=== PATIENT | female | born 2000 | race African-American/Black ===

== ENCOUNTER 2018-09-27 02:30 | Inpatient (IN) | payer SELFPAY ==
[~2018-09-27] VITALS: Ht 165.1 cm; Wt 69.9 kg
[2018-09-27 03:50] VITALS: BP 105/65
[2018-09-27] MEDS ORDERED: ONDANSETRON PF 4 MG/2 ML VIAL. IV PRN (04:30)
[2018-09-27] MEDS ORDERED: fentaNYL PF VIAL 100 MCG/2 ML VIAL IV PRN (04:30)
[2018-09-27] MEDS ORDERED: diphenhydrAMINE 50 MG/ML VIAL IVP PRN (04:30)
[2018-09-27] MEDS: IV NORMAL SALINE 1000ML BAG 1,000 ML IV SCH ×2 (04:42→14:28)
[2018-09-27 07:00] VITALS: BP 117/76
--- NOTE | 2018-09-27 09:05 | PDOC2 ---
CONSULT Date of Consult Date of Consult DATE: 09/27/18 TIME: 09:00 Reason for Consult Reason for Consult: abdominal pain Referring Physician Referring Physician: ER Identification/Chief Complaint Chief Complaint abdominal pain Source Source: Chart review, Patient History of Present Illness Reason for Visit: 3 days of right sided abdominal pain, associated nausea and emesis. No constipation or diarrhea. Reports finished menstruation Sunday, however yesterday developed heavy vaginal bleeding that has continued. This is not a usual occurrence for her Past Medical History Past Medical History no pertinent hx Past Surgical History Past Surgical History: No pertinent history Family History Family History: Other (noncontributory to current illness ) Social History No ALCOHOL: none Drugs: None Lives: with Family Current Medications Current Medications Current Medications Sodium Chloride 1,000 ml @ 100 mls/hr Q10H IV Last administered on 09/27/18at 04:42; Start 09/27/18 at 05:00 Fentanyl Citrate (Fentanyl 2ml Vial) 50 mcg PRN Q3HRS PRN IV SEVERE PAIN Last administered on 09/27/18at 06:30; Start 09/27/18 at 04:30 Ondansetron HCl (Zofran) 4 mg PRN Q4HRS PRN IV NAUSEA/VOMITING 1ST CHOICE Last administered on 09/27/18at 04:41; Start 09/27/18 at 04:30 Diphenhydramine HCl (Benadryl) 25 mg PRN Q4HRS PRN IVP ITCHING; Start 09/27/18 at 04:30 Allergies Allergies: Coded Allergies: No Known Drug Allergies (Unverified , 09/27/18) ROS General: No: Chills, Other (fevers) PSYCHOLOGICAL ROS: No: Anxiety, Depression Eyes: No Blurry vision, No Double vision HEENT: No: Heacaches, Sore Throat Hematological and Lymphatic: No: Bleeding Problems, Blood Clots Respiratory: No: Cough, SOB with excertion Cardiovascular: No Chest Pain, No Palpitations Gastrointestinal: Yes Other (see hpi) Genitourinary: No Dysuria, No Retention Musculoskeletal: No Joint Pain, No Muscle Pain Neurological: No Confusion, No Impaired Coord/balance Skin: No Pruritus, No Rash Physical Exam General: Alert, Oriented X3, Cooperative, No acute distress HEENT: PERRLA, Mucous membr. moist/pink Lungs: Clear to auscultation, Normal air movement Heart: Regular rate, Normal S1, Normal S2, No murmurs Abdomen: Soft, Other (ND, RUQ TTP, very mild epigastric and RLQ pain) Skin: No rashes, No breakdown Neuro: Normal gait, Normal speech MUSCULOSKELETAL: No deformity, No swelling Vitals VITALS Vital Signs Date Time Temp Pulse Resp B/P (MAP) Pulse Ox O2 Delivery O2 Flow Rate FiO2 09/27/18 07:23 93 Room Air 09/27/18 03:50 98.5 86 18 105/65 (78) 98.5 Images Images 1. There is free fluid within the abdomen and pelvis which is more than typically seen and suggestive of a pathologic process. There is also some edema seen to the mesentery within the pelvis. 2. The appendix is partially visualized and appears mildly dilated. This courses through a region of fluid therefore difficult to tell if there is adjacent inflammatory changes however given the dilation correlation is needed as to whether the patient is having symptoms of appendicitis given that if there is high clinical concern causes such as an early appendicitis is within the differential. Given that the dilation is only borderline however the diagnosis is not certain. If unclear clinically and further information is desired a follow-up CT could be obtained at a later time to assess for further increase in size of the appendix. 3. Within the pelvis there is a linear region of high density seen along the peritoneum. Difficult to tell if this is secondary to peritoneal enhancement from inflammation to the peritoneum or if this is from a small vessel coursing through the region. 4. Periportal edema within the liver. This is a nonspecific finding and can be secondary to the patient's hydration status however inflammation of the liver or biliary tree can also have this appearance. 5. There is some fullness of the left adnexa. Would correlate with symptoms in the region to ensure there is not a pathologic process and if further information is desired pelvic ultrasound could further evaluate Assessment/Plan Assessment/Plan CT reviewed abdominal pain, mainly ruq, abnormal vaginal bleeding will order pelvic sono, gb sono, and SURVEY RESEARCHER consult MIGUELINA MOSS APRN Sep 27, 2018 09:05
[2018-09-27] MEDS: MORPHINE SULFATE 2 MG/ML VIAL. IV PRN ×5 (09:44→23:26)
[2018-09-27 11:00] VITALS: BP 99/52
--- NOTE | 2018-09-27 11:28 | NUR ---
SW following for discharge planning. Discussed with RN, pt is from home, possibly having surgery. Pt is self pay, SW to provide self pay resources.
--- NOTE | 2018-09-27 12:10 | HP ---
ADMIT DATE: 09/27/2018 HISTORY OF PRESENT ILLNESS: The patient is a 18-year-old -Citizen Of [place] female patient who came complaining of severe right flank pain that started about 3 days ago. She did have some nausea and vomiting, but denied any chills, rigors or fever. Denied any dysuria, frequency or hematuria. She was evaluated extensively in the Emergency Room and has had a CT scan of the abdomen, which showed that there is free fluid within the abdomen and pelvis, which she is more than typically seen and suggestive of pathologic process. There is also some edema seen to the mesentery within the pelvis. The appendix is partially visualized and appears mildly dilated ____ the region of the fluid, therefore difficult to tell if there are adjacent inflammatory changes. However, given the dilation, correlation is needed as to whether she is having symptoms of appendicitis given that there is a high clinical concern such as an early appendicitis within differential. Given that dilation is only borderline, however, diagnosis is not certain. If unclear clinically, further information desired. A followup CT could be obtained at a later time to assess for further increase in size of the appendix. Within the pelvis, there is a linear region of high density seen along the peritoneum, difficult to tell if this is secondary to peritoneal enhancement from inflammation or there is a small vessel coursing to the region. She has also periportal edema within the liver. There is nonspecific finding and can be secondary to the patient's hydration status; however, inflammation of the liver ____ can also give this appearance. There is some fullness of the left adnexa and would correlate with symptoms in the region to ensure that there is not a pathologic process. Further information desired, pelvic ultrasound could further evaluate. Given all this finding, the patient was transferred to [facility] to consult the surgical team as well as the morning news anchor if felt necessary. PAST MEDICAL HISTORY: Unremarkable. PAST SURGICAL HISTORY: Unremarkable. ALLERGIES: No known drug allergies. MEDICATIONS: She is currently on no medication. Her last menstrual period started about 5 days ago, stopped and started heavier than usual. FAMILY HISTORY: She has 5 brothers, 1 older and 2 sisters younger. She does not know her biological mother. Her father lives in [place]. SOCIAL HISTORY: She is single, has no children. She does not smoke, drink alcohol, or recreational drugs. 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 REVIEW OF SYSTEMS: As per history of present illness. PHYSICAL EXAMINATION GENERAL: When I saw her this morning, she looked well and was clearly in no apparent respiratory distress. No pallor, jaundice, cyanosis or thyromegaly. No jugular venous distension. No lower limb edema. VITAL SIGNS: Her heart rate was 81, blood pressure 117/76, temperature was 98.4, respiratory rate was 18 and oxygen saturation was 98% on room air. HEAD, EYES, EARS, NOSE AND THROAT: She is well nourished, well developed, in no acute distress. She is normocephalic, atraumatic. NECK: Supple. CARDIAC: Normal first and second heart sounds. No gallop or murmur. CHEST: Clear to auscultation. No crepitation or rhonchi. ABDOMEN: Soft, nontender. No guarding or rigidity. No organomegaly. All hernial orifices intact. Bowel sounds normal. NEUROLOGIC: She is awake, alert, oriented x 3, with normal motor and sensory function. VITAL SIGNS: Her heart rate on arrival was 56, blood pressure was 118/73, temperature was 98, respiratory rate was 16 and oxygen saturation was 99% on room air. LABORATORY DATA: Her lab work on arrival to the Emergency Room showed her white cell count was 8200, hemoglobin 10, hematocrit 31, MCV 90 and platelet count of 446,000. Her urinalysis was essentially unremarkable and was negative for nitrite with large amount of blood, [id number] count rbc's and no wbc's, and no bacteria. Her toxic screen was negative. Her prothrombin time was 10.4, INR 1, aPTT was 26. Her serum sodium 141, potassium 3.4, chloride 106, bicarbonate 27, anion gap of 8, BUN 8, creatinine 0.8, estimated GFR was 110 mL per minute. Her glucose was 93, calcium was 8.7. Total bilirubin, AST, ALT, alkaline phosphatase were normal. Total protein was 7.7, albumin was 3.3. Amylase and lipase were normal. IMPRESSION AND PLAN: In summary, this is a 18-year-old female patient who came in complaining of a questionable appendicitis; however, there are other findings on the CT scan of the abdomen, and therefore, we will keep the patient n.p.o., start her on IV fluid, pain medication and antiemetic. We consulted the surgical team and if need be, we might have to consult the morning news anchor given the finding in the pelvic region. BRANDI BOWMAN MD DR: JERRELL/serg JOB#: [id number] / [id number]
[2018-09-27 15:00] VITALS: BP 95/59
--- NOTE | 2018-09-27 16:39 | PDOC ---
GENERAL General: 18yrs old W/F having Abdominal in RT upper quadrant Having her Period now and Bleeding..H/O Irregular Periods. VITAL SIGNS Vital Signs: Vital Signs Date Time Temp Pulse Resp B/P (MAP) Pulse Ox O2 Delivery O2 Flow Rate FiO2 09/27/18 14:28 93 Room Air 09/27/18 11:00 98.6 57 18 99/52 (68) 98.6 I & O I & O Intake and Output 09/27/18 07:00 Intake Total 0 ml Balance 0 ml Intake Oral 0 ml ALLERGIES Allergies: Allergies Coded Allergies Type Severity Reaction Last Updated Verified No Known Drug Allergies 09/27/18 No MEDS Medications: Current Medications Medications (Trade) Dose Ordered Sig/Dusty Start Time Stop Time Status Last Admin Dose Admin Diphenhydramine HCl (Benadryl) 25 mg PRN Q4HRS PRN 09/27/18 04:30 09/27/18 09:44 25 MG Fentanyl Citrate (Fentanyl 2ml Vial) 50 mcg PRN Q3HRS PRN 09/27/18 04:30 09/27/18 09:12 DC 09/27/18 06:30 50 MCG Morphine Sulfate (Morphine Sulfate) 2 mg PRN Q2HR PRN 09/27/18 09:15 09/27/18 12:17 2 MG Ondansetron HCl (Zofran) 4 mg PRN Q4HRS PRN 09/27/18 04:30 09/27/18 04:41 4 MG Sodium Chloride 1,000 ml @ 100 mls/hr Q10H 09/27/18 05:00 09/27/18 14:28 100 MLS/HR LAB Lab: Needs Stat CBC with Diff. Serum Electrolytes. On IV Fluids. IMAGING Imaging: Pending Pelvic Ultrasound. ASSESSMENT & PLAN A&P Wait for Lab work.and ultrasound report. Has Negative test. Pelvic Exam shows Normal size uterus. No Adnexal tenderness.Mild Bleeding due to period. Will see her in AM. GARRETT VEGA MD Sep 27, 2018 16:39
[2018-09-27 17:20] LABS: BASO % 1 % (0-3); EOS # 0.1 x10^3/uL (0.0-0.7); EOS % 1 % (0-3); HEMATOCRIT 28.9 % (36.0-47.0); HEMOGLOBIN 9.6 g/dL (12.0-15.5); LYMPH % 30 % (24-48); MEAN CORPUSCULAR HEMOGLOBIN 30 pg (25-35); MEAN CORPUSCULAR HGB CONC 33 g/dL (31-37); MEAN CORPUSCULAR VOLUME 90 fL (79-100); MONO # 0.5 x10^3/uL (0.0-1.1); MONO % 8 % (0-9); NEUT # 4.1 x10^3uL (1.8-7.7); NEUT % 61 % (31-73); PLATELET COUNT 371 x10^3/uL (140-400); RED BLOOD COUNT 3.22 x10^6/uL (3.50-5.40); RED CELL DISTRIBUTION WIDTH 12.7 % (11.5-14.5); WHITE BLOOD COUNT 6.8 x10^3/uL (4.0-11.0)
[2018-09-27 17:29] LABS: CALCIUM 8.9 mg/dL (8.5-10.1); CREATININE 0.8 mg/dL (0.6-1.0); GFR 110.7; POTASSIUM 3.7 mmol/L (3.5-5.1)
[2018-09-27 17:35] LABS: ALBUMIN 3.1 g/dL (3.4-5.0); ALBUMIN/GLOBULIN RATIO 0.8 (1.0-1.7); TOTAL BILIRUBIN 0.4 mg/dL (0.2-1.0); TOTAL PROTEIN 7.1 g/dL (6.4-8.2)
--- NOTE | 2018-09-27 19:00 | RAD ---
Ultrasound pelvis complete and transvaginal ultrasound pelvis HISTORY: Pain and irregular cycles Sonographic examination of the pelvis was performed by transabdominal and endovaginal technique. Multiple static images were obtained. Ultrasound pelvis complete transabdominal: The uterus is retroverted. The endometrium appears normal and measures 4 mm in thickness. There is a moderate amount of free fluid in the pelvis. The uterus measures 7.7 x 4.9 x 3.9 cm. Transvaginal some pelvis: The ovaries are large with bilateral masses. The right ovary measures 5.8 x 5.7 x 3.9 cm. Left ovary measures 5. By 3.9 x 3.2 cm. The largest masses on the right measures 3.5 x 2.3 x 2.4 cm. There is normal blood flow the ovaries bilaterally. IMPRESSION: 1. Bilateral ovarian masses. This could be secondary to endometriosis. 2. Free fluid in the pelvis. must be excluded in order to exclude possible ruptured ectopic. Also a 2 month follow-up ultrasound is recommended. Electronically signed by: Jesus Mann III, MD (09/27/2018 6:57 PM) [facility]
--- NOTE | 2018-09-27 19:01 | RAD ---
Complete Abdominal Ultrasound: Clinical History: Abdominal pain Technique: Sonographic examination of the abdomen was performed and multiple static images were obtained. Findings: The majority of the liver is visualized and appears homogeneous. The common bile duct appears normal measures 1.7 mm in diameter. The gallbladder appears normal. The pancreas is not well visualized due to overlying bowel gas but appears within normal limits. The right kidney appears normal and measures 12.4 cm in length. The left kidney appears normal and measures 12.5 cm in length. The spleen is not enlarged. Visualized portions of the abdominal aorta and IVC appear normal. Impression: Negative. No evidence of gallbladder disease. Electronically signed by: Jesus Mann III, MD (09/27/2018 6:58 PM) [facility]
[2018-09-27 19:25] VITALS: BP 101/45
[2018-09-27] MEDS ORDERED: CLINDAMYCIN INJ 300 MG in IV DEXTROSE 5% 50 ML IV SCH (22:00)
[2018-09-27] MEDS: CLINDAMYCIN 600MG PREMIX 50 ML IV SCH (23:26)
[2018-09-27 23:47] VITALS: BP 94/46
[2018-09-28] MEDS: MORPHINE SULFATE 2 MG/ML VIAL. IV PRN ×2 (01:43→05:07)
[2018-09-28] MEDS: IV NORMAL SALINE 1000ML BAG 1,000 ML IV SCH ×2 (02:58→11:00)
[2018-09-28 03:48] VITALS: BP 92/45
[2018-09-28] MEDS: CLINDAMYCIN 600MG PREMIX 50 ML IV SCH ×2 (05:08→14:00)
[2018-09-28 06:20] LABS: HEMATOCRIT 27.1 % (36.0-47.0); HEMOGLOBIN 8.9 g/dL (12.0-15.5); RED BLOOD COUNT 3.02 x10^6/uL (3.50-5.40); RED CELL DISTRIBUTION WIDTH 12.9 % (11.5-14.5); WHITE BLOOD COUNT 4.9 x10^3/uL (4.0-11.0)
[2018-09-28 06:48] LABS: ALBUMIN 2.6 g/dL (3.4-5.0); ALBUMIN/GLOBULIN RATIO 0.7 (1.0-1.7); CALCIUM 8.3 mg/dL (8.5-10.1); CREATININE 0.8 mg/dL (0.6-1.0); GFR 110.7; POTASSIUM 3.8 mmol/L (3.5-5.1); TOTAL BILIRUBIN 0.3 mg/dL (0.2-1.0); TOTAL PROTEIN 6.1 g/dL (6.4-8.2)
[2018-09-28 07:00] VITALS: BP 96/55
[2018-09-28] MEDS ORDERED: HYDROcodone/APAP 5/325MG 1 TAB TABLET PO PRN (10:30)
[2018-09-28 11:00] VITALS: BP 112/69
--- NOTE | 2018-09-28 12:19 | PDOC ---
GENERAL General: Patient still has upper abdominal pain. No pain in Pelvic area. Petient on her period. VITAL SIGNS Vital Signs: Vital Signs Date Time Temp Pulse Resp B/P (MAP) Pulse Ox O2 Delivery O2 Flow Rate FiO2 09/28/18 11:41 Room Air 09/28/18 07:00 98.4 22 96/55 (69) 92 98.4 09/28/18 05:37 17 ALLERGIES Allergies: Allergies Coded Allergies Type Severity Reaction Last Updated Verified No Known Drug Allergies 09/27/18 No MEDS Medications: Current Medications Medications (Trade) Dose Ordered Sig/Dusty Start Time Stop Time Status Last Admin Dose Admin Acetaminophen/ Hydrocodone Bitart (Lortab 5/325) 1 tab PRN Q4HRS PRN 09/28/18 10:30 09/28/18 10:41 1 TAB Clindamycin Phosphate 50 ml @ 100 mls/hr Q8HRS 09/27/18 22:00 09/28/18 05:08 100 MLS/HR Clindamycin Phosphate 300 mg/ Dextrose 52 ml @ 104 mls/hr Q8HRS 09/27/18 22:00 Cancel Diphenhydramine HCl (Benadryl) 25 mg PRN Q4HRS PRN 09/27/18 04:30 09/27/18 09:44 25 MG Fentanyl Citrate (Fentanyl 2ml Vial) 50 mcg PRN Q3HRS PRN 09/27/18 04:30 09/27/18 09:12 DC 09/27/18 06:30 50 MCG Morphine Sulfate (Morphine Sulfate) 2 mg PRN Q2HR PRN 09/27/18 09:15 09/28/18 05:07 2 MG Ondansetron HCl (Zofran) 4 mg PRN Q4HRS PRN 09/27/18 04:30 09/27/18 04:41 4 MG Sodium Chloride 1,000 ml @ 100 mls/hr Q10H 09/27/18 05:00 09/28/18 02:58 100 MLS/HR LAB Lab: Laboratory Tests Test 09/27/18 16:43 09/28/18 05:50 White Blood Count 6.8 x10^3/uL (4.0-11.0) 4.9 x10^3/uL (4.0-11.0) Red Blood Count 3.22 x10^6/uL (3.50-5.40) 3.02 x10^6/uL (3.50-5.40) Hemoglobin 9.6 g/dL (12.0-15.5) 8.9 g/dL (12.0-15.5) Hematocrit 28.9 % (36.0-47.0) 27.1 % (36.0-47.0) Mean Corpuscular Volume 90 fL (79-100) 90 fL (79-100) Mean Corpuscular Hemoglobin 30 pg (25-35) 30 pg (25-35) Mean Corpuscular Hemoglobin Concent 33 g/dL (31-37) 33 g/dL (31-37) Red Cell Distribution Width 12.7 % (11.5-14.5) 12.9 % (11.5-14.5) Platelet Count 371 x10^3/uL (140-400) 342 x10^3/uL (140-400) Neutrophils (%) (Auto) 61 % (31-73) Lymphocytes (%) (Auto) 30 % (24-48) Monocytes (%) (Auto) 8 % (0-9) Eosinophils (%) (Auto) 1 % (0-3) Basophils (%) (Auto) 1 % (0-3) Neutrophils # (Auto) 4.1 x10^3uL (1.8-7.7) Lymphocytes # (Auto) 2.0 x10^3/uL (1.0-4.8) Monocytes # (Auto) 0.5 x10^3/uL (0.0-1.1) Eosinophils # (Auto) 0.1 x10^3/uL (0.0-0.7) Basophils # (Auto) 0.0 x10^3/uL (0.0-0.2) Sodium Level 140 mmol/L (136-145) 145 mmol/L (136-145) Potassium Level 3.7 mmol/L (3.5-5.1) 3.8 mmol/L (3.5-5.1) Chloride Level 106 mmol/L (98-107) 110 mmol/L (98-107) Carbon Dioxide Level 26 mmol/L (21-32) 27 mmol/L (21-32) Anion Gap 8 (6-14) 8 (6-14) Blood Urea Nitrogen 5 mg/dL (7-20) 8 mg/dL (7-20) Creatinine 0.8 mg/dL (0.6-1.0) 0.8 mg/dL (0.6-1.0) Estimated GFR (Cockcroft-Gault) 110.7 110.7 BUN/Creatinine Ratio 6 (6-20) 10 (6-20) Glucose Level 75 mg/dL (70-99) 95 mg/dL (70-99) Calcium Level 8.9 mg/dL (8.5-10.1) 8.3 mg/dL (8.5-10.1) Total Bilirubin 0.4 mg/dL (0.2-1.0) 0.3 mg/dL (0.2-1.0) Aspartate Amino Transf (AST/SGOT) 17 U/L (15-37) 16 U/L (15-37) Alanine Aminotransferase (ALT/SGPT) 12 U/L (14-59) 11 U/L (14-59) Alkaline Phosphatase 61 U/L (46-116) 58 U/L (46-116) Total Protein 7.1 g/dL (6.4-8.2) 6.1 g/dL (6.4-8.2) Albumin 3.1 g/dL (3.4-5.0) 2.6 g/dL (3.4-5.0) Albumin/Globulin Ratio 0.8 (1.0-1.7) 0.7 (1.0-1.7) ASSESSMENT & PLAN A&P Patient has no pelvic pain today. Pelvic sonogram shows Bilateral Ovarian Cysts Possible Endometriosis. Since she is feeling better will see her in 2 weeks in office. Patient can go home today pm. GARRETT VEGA MD Sep 28, 2018 12:19
[2018-09-28] MEDS ORDERED: HYDR-2761 PO (12:29)
--- NOTE | 2018-09-28 12:30 | PDOC ---
SURGICAL PROGRESS NOTE Subjective Pt david diet, no N/V, still with some RUQ pain Vital Signs Vital Signs Date Time Temp Pulse Resp B/P (MAP) Pulse Ox O2 Delivery O2 Flow Rate FiO2 09/28/18 11:41 Room Air 09/28/18 11:00 98.0 68 18 112/69 (83) 97 98.0 General: Alert, Oriented X3, Cooperative, No acute distress Abdomen: Soft, Other (mild TTP RUQ) Labs Laboratory Tests Test 09/27/18 16:43 09/28/18 05:50 White Blood Count 6.8 x10^3/uL (4.0-11.0) 4.9 x10^3/uL (4.0-11.0) Red Blood Count 3.22 x10^6/uL (3.50-5.40) 3.02 x10^6/uL (3.50-5.40) Hemoglobin 9.6 g/dL (12.0-15.5) 8.9 g/dL (12.0-15.5) Hematocrit 28.9 % (36.0-47.0) 27.1 % (36.0-47.0) Mean Corpuscular Volume 90 fL (79-100) 90 fL (79-100) Mean Corpuscular Hemoglobin 30 pg (25-35) 30 pg (25-35) Mean Corpuscular Hemoglobin Concent 33 g/dL (31-37) 33 g/dL (31-37) Red Cell Distribution Width 12.7 % (11.5-14.5) 12.9 % (11.5-14.5) Platelet Count 371 x10^3/uL (140-400) 342 x10^3/uL (140-400) Neutrophils (%) (Auto) 61 % (31-73) Lymphocytes (%) (Auto) 30 % (24-48) Monocytes (%) (Auto) 8 % (0-9) Eosinophils (%) (Auto) 1 % (0-3) Basophils (%) (Auto) 1 % (0-3) Neutrophils # (Auto) 4.1 x10^3uL (1.8-7.7) Lymphocytes # (Auto) 2.0 x10^3/uL (1.0-4.8) Monocytes # (Auto) 0.5 x10^3/uL (0.0-1.1) Eosinophils # (Auto) 0.1 x10^3/uL (0.0-0.7) Basophils # (Auto) 0.0 x10^3/uL (0.0-0.2) Sodium Level 140 mmol/L (136-145) 145 mmol/L (136-145) Potassium Level 3.7 mmol/L (3.5-5.1) 3.8 mmol/L (3.5-5.1) Chloride Level 106 mmol/L (98-107) 110 mmol/L (98-107) Carbon Dioxide Level 26 mmol/L (21-32) 27 mmol/L (21-32) Anion Gap 8 (6-14) 8 (6-14) Blood Urea Nitrogen 5 mg/dL (7-20) 8 mg/dL (7-20) Creatinine 0.8 mg/dL (0.6-1.0) 0.8 mg/dL (0.6-1.0) Estimated GFR (Cockcroft-Gault) 110.7 110.7 BUN/Creatinine Ratio 6 (6-20) 10 (6-20) Glucose Level 75 mg/dL (70-99) 95 mg/dL (70-99) Calcium Level 8.9 mg/dL (8.5-10.1) 8.3 mg/dL (8.5-10.1) Total Bilirubin 0.4 mg/dL (0.2-1.0) 0.3 mg/dL (0.2-1.0) Aspartate Amino Transf (AST/SGOT) 17 U/L (15-37) 16 U/L (15-37) Alanine Aminotransferase (ALT/SGPT) 12 U/L (14-59) 11 U/L (14-59) Alkaline Phosphatase 61 U/L (46-116) 58 U/L (46-116) Total Protein 7.1 g/dL (6.4-8.2) 6.1 g/dL (6.4-8.2) Albumin 3.1 g/dL (3.4-5.0) 2.6 g/dL (3.4-5.0) Albumin/Globulin Ratio 0.8 (1.0-1.7) 0.7 (1.0-1.7) Laboratory Tests Test 09/27/18 16:43 09/28/18 05:50 White Blood Count 6.8 x10^3/uL (4.0-11.0) 4.9 x10^3/uL (4.0-11.0) Red Blood Count 3.22 x10^6/uL (3.50-5.40) 3.02 x10^6/uL (3.50-5.40) Hemoglobin 9.6 g/dL (12.0-15.5) 8.9 g/dL (12.0-15.5) Hematocrit 28.9 % (36.0-47.0) 27.1 % (36.0-47.0) Mean Corpuscular Volume 90 fL (79-100) 90 fL (79-100) Mean Corpuscular Hemoglobin 30 pg (25-35) 30 pg (25-35) Mean Corpuscular Hemoglobin Concent 33 g/dL (31-37) 33 g/dL (31-37) Red Cell Distribution Width 12.7 % (11.5-14.5) 12.9 % (11.5-14.5) Platelet Count 371 x10^3/uL (140-400) 342 x10^3/uL (140-400) Neutrophils (%) (Auto) 61 % (31-73) Lymphocytes (%) (Auto) 30 % (24-48) Monocytes (%) (Auto) 8 % (0-9) Eosinophils (%) (Auto) 1 % (0-3) Basophils (%) (Auto) 1 % (0-3) Neutrophils # (Auto) 4.1 x10^3uL (1.8-7.7) Lymphocytes # (Auto) 2.0 x10^3/uL (1.0-4.8) Monocytes # (Auto) 0.5 x10^3/uL (0.0-1.1) Eosinophils # (Auto) 0.1 x10^3/uL (0.0-0.7) Basophils # (Auto) 0.0 x10^3/uL (0.0-0.2) Sodium Level 140 mmol/L (136-145) 145 mmol/L (136-145) Potassium Level 3.7 mmol/L (3.5-5.1) 3.8 mmol/L (3.5-5.1) Chloride Level 106 mmol/L (98-107) 110 mmol/L (98-107) Carbon Dioxide Level 26 mmol/L (21-32) 27 mmol/L (21-32) Anion Gap 8 (6-14) 8 (6-14) Blood Urea Nitrogen 5 mg/dL (7-20) 8 mg/dL (7-20) Creatinine 0.8 mg/dL (0.6-1.0) 0.8 mg/dL (0.6-1.0) Estimated GFR (Cockcroft-Gault) 110.7 110.7 BUN/Creatinine Ratio 6 (6-20) 10 (6-20) Glucose Level 75 mg/dL (70-99) 95 mg/dL (70-99) Calcium Level 8.9 mg/dL (8.5-10.1) 8.3 mg/dL (8.5-10.1) Total Bilirubin 0.4 mg/dL (0.2-1.0) 0.3 mg/dL (0.2-1.0) Aspartate Amino Transf (AST/SGOT) 17 U/L (15-37) 16 U/L (15-37) Alanine Aminotransferase (ALT/SGPT) 12 U/L (14-59) 11 U/L (14-59) Alkaline Phosphatase 61 U/L (46-116) 58 U/L (46-116) Total Protein 7.1 g/dL (6.4-8.2) 6.1 g/dL (6.4-8.2) Albumin 3.1 g/dL (3.4-5.0) 2.6 g/dL (3.4-5.0) Albumin/Globulin Ratio 0.8 (1.0-1.7) 0.7 (1.0-1.7) Problem List RUQ pain, ovarian masses d/w primary and inseminator OK to d/c with f/u with inseminator regarding ovarian masses f/u with gen surg if cont RUQ pain no obvious evidence of appendicitis JORGE HAMMER MD Sep 28, 2018 12:30
--- NOTE | 2018-09-28 15:22 | NUR ---
Pt was given dc packet, rx given for pain, and rx given for work excuse. Pt was able to tolerate diet. Pt was taken down to the main entrance by NA at 1515.
--- NOTE | 2018-09-28 20:26 | CONS ---
DATE OF CONSULTATION: HISTORY OF PRESENT ILLNESS: This patient is a 18-year-old female who is 0, para 0, came in from [facility], transferred to [facility] because of pelvic pain, possible appendicitis. The patient did have a CT scan and also ultrasound of the abdomen and pelvis, which show bilateral ovarian cysts, but negative gallbladder as well as appendix being normal. Her hemoglobin is about 9.6. PHYSICAL EXAMINATION: VITAL SIGNS: Stable. HEAD, EYES, EARS, NOSE, THROAT: Within normal limits. LUNGS: Clear. ABDOMEN: Soft, complaining of upper right quadrant pain at this time. No tenderness in the pelvic area. PELVIC: Shows mild vaginal bleeding as the patient is in her periods. On bimanual exam, uterus feels normal size. There is no tenderness whatsoever in the adnexal area. EXTREMITIES: No edema of feet. IMPRESSION: Bilateral ovarian cysts, possible endometriosis. RECOMMENDATION: Would be IV antibiotics due to peritoneal fluid, possible ruptured corpus luteum cyst and the inflammation can subside. If the patient is stable and feeling good, she can go home. I will be glad to see her in the office in 2 weeks for further care and treatment for endometriosis. Thank you for giving me the opportunity to participate in the care and management of this patient. GARRETT VEGA MD DR: FILI/serg JOB#: [id number] / [id number]
--- NOTE | 2018-09-28 20:33 | DS ---
DATE OF DISCHARGE: 09/28/2018 HOSPITAL COURSE: The patient is a 18-year-old female patient, who was seen originally at [facility] with possible appendicitis. There are also multiple ovarian cysts and therefore, the patient was transferred to [facility]. She was seen by the surgical team as well as the lip reading teacher who transpired that she is having her periods. She did have transabdominal pelvic ultrasound, which basically showed that the patient had bilateral ovarian masses, could be secondary to endometriosis free fluid in the pelvis. Her test was negative. She was seen by the surgical team and the lip reading teacher and both said that she can be discharged to follow as an outpatient with a lip reading teacher in 2 weeks' time. Her abdominal ultrasound showed no evidence of gallbladder disease. PHYSICAL EXAMINATION: GENERAL: When I saw her this morning, she looked well and was clearly in no apparent respiratory distress. No pallor, jaundice, cyanosis, or thyromegaly. No jugular venous distension. No lower limb edema. VITAL SIGNS: Her heart rate was 68, blood pressure was 112/69, temperature was 98, respiratory rate was 18 and oxygen saturation was 97%. HEAD, EYES, EARS, NOSE AND THROAT: Showed normocephalic, atraumatic. NECK: Supple. HEART: Showed normal first and second heart sounds. No gallop, rub or murmur. CHEST: Clear to auscultation. No crepitation or rhonchi. ABDOMEN: Distended, soft, nontender. No guarding or rigidity. No organomegaly. All hernial orifices intact. Bowel sounds normal. NEUROLOGIC: She was awake, alert, responding appropriately, all cranial nerves intact. She moves her extremities without difficulty. LABORATORY DATA: Her lab work this morning showed a white cell count 4900, hemoglobin 9, hematocrit 27, MCV 90 and platelet count 342,000. Serum sodium was 145, potassium 3.8, chloride 110, bicarbonate 27, anion gap of 8, BUN 8, creatinine 0.8, estimated GFR was 110 mL per minute. Her glucose was 95, calcium was 8.3. Total bilirubin, AST, ALT, alkaline phosphatase were normal. Total protein 6.1, albumin was 2.6. DISCHARGE MEDICATIONS: The patient was discharged home to continue on hydrocodone 5/325 one tablet every 8 hours. She should follow with the lip reading teacher in 2 weeks' time as ultrasound suggests she might have endometriosis. FINAL DISCHARGE DIAGNOSES: The patient is having her menstrual period, there is possibility of endometriosis. There is no evidence of acute cholecystitis. BRANDI BOWMAN MD DR: JERRELL/serg JOB#: [id number] / [id number]
== END 2018-09-28 15:20 | disposition home or self-care (01) | DRG 761 ==
LOC: 4 NORTH 03:43
PROVIDERS: ADMIT Internal Medicine; ATTEND Internal Medicine
DX: N80.9 Endometriosis, unspecified (principal); N83.201 Unspecified ovarian cyst, right side; N83.202 Unspecified ovarian cyst, left side; N93.9 Abnormal uterine and vaginal bleeding, unspecified
CPT/HCPCS: 36415; 76700; 76830; 76856; 80053; 85025; 85027; J1200; J2270; J2405; J3010; J3490; J7030

== ENCOUNTER 2019-02-23 10:22 | Emergency (ER) | payer SELFPAY ==
[~2019-02-23] VITALS: Ht 167.6 cm; Wt 68.0 kg
[~2019-02-23 10:22] MED LIST: HYDR-2761 PO
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
[2019-02-23 12:30] VITALS: BP 118/77
[2019-02-23] MEDS ORDERED: ACETAMINOPHEN 500 MG TABLET PO ONE (12:30)
== END 2019-02-23 12:46 | disposition home or self-care (01) ==
LOC: ER 10:22
DX: S09.90XA Unspecified injury of head, initial encounter (principal); S80.212A Abrasion, left knee, initial encounter; S80.211A Abrasion, right knee, initial encounter; S60.511A Abrasion of right hand, initial encounter; Y08.89XA Assault by other specified means, initial encounter; Y93.89 Activity, other specified; Y92.89 Other specified places as the place of occurrence of the external cause; Y99.8 Other external cause status
CPT/HCPCS: 70450; 81025; 99284